=== PATIENT | male | born 1965 | race African-American/Black ===

== ENCOUNTER 2024-09-29 17:25 | Emergency (ER) | payer MEDICAID, SELFPAY ==
[2024-09-30 03:15] VITALS: BP 132/92; PULSE 71; RESP 14; TEMP 36.7; O2SAT 95
[2024-09-30 03:26] LABS: Glucose Point of Care 399 mg/dl (65-105)
--- NOTE | 2024-09-30 03:45 | ED_ITS ---
HPI - Recheck/Abnormal Lab/Rx General Chief Complaint: Recheck/Abnormal Lab/Rx Stated Complaint: diabetes Time Seen by Provider: 09/30/24 03:46 History of Present Illness HPI narrative: Focused HPI:59 y/o M presents to the ED for weakness, dizziness and to have his insulin refilled. Patient states he lives in [place] but has been staying in a motel here visiting his knees. He used the last of his insulin today is requesting a refill. He is taking 22 units of insulin lispro twice daily. He has not established with a PCP. He is reporting diffuse weakness and some dizziness. Denies chest pain or shortness of breath, cough or congestion, fever, N/V/D. Related Data Allergies Allergy/AdvReac Type Severity Reaction Status Date / Time No Known Allergies Allergy Verified 09/30/24 03:25 Review of Systems 2 Review of Systems: As reviewed above in HPI Exam 2 Narrative: GENERAL: Morbidly obese but not any acute distress. Disheveled appearance. HEAD: [Normocephalic, atraumatic.] EYES: [PERRLA and EOMI.] ENT: Nares clear, no rhinorrhea or epistaxis. Mucous membranes dry. NECK: Supple. CHEST: [Clear to auscultation. No respiratory distress.] HEART: [Regular rate and rhythm]. No murmur heard. [Normal peripheral pulses.] ABDOMEN: [Soft, nondistended], [nontender], [No rigidity or guarding] EXTREMITIES: Normal range of motion. [No edema.] SKIN: Warm, dry, no rash. NEURO: [No focal deficits]. Alert and oriented [x3.] PSYCH: [Normal mood and affect.] Course Vital Signs Vital signs: Vital Signs Temperature 36.7 C 09/30/24 03:15 Pulse Rate 71 09/30/24 03:15 Respiratory Rate 14 09/30/24 03:15 Blood Pressure 132/92 H 09/30/24 03:15 Pulse Oximetry 95 09/30/24 03:15 Temperature 36.7 C 09/30/24 03:15 Pulse Rate 71 09/30/24 03:15 Respiratory Rate 14 09/30/24 03:15 Blood Pressure 132/92 H 09/30/24 03:15 Pulse Oximetry 95 09/30/24 03:15 MDM - Recheck/Abnormal Lab/Rx MDM Narrative Medical decision making narrative: 59-year-old male with a past medical history including insulin-dependent diabetes presenting to the emergency department for evaluation as she ran out of insulin yesterday. He takes 22 units of lispro twice daily. He was otherwise in his normal state of health, denies any symptoms at this time, is from out of town and visiting the emergency department as he missed his dosages today. Patient states that he resides at a local hotel and is here for a few weeks. Tells me that he does not have a primary care provider and goes to various emergency departments for refills of his insulin. He does appear dehydrated but no tachypnea or tachycardia is noted. He has otherwise unremarkable vital signs. Not any distress. Suspicion for DKA is low but other process such as elevated glucose dehydration and Entresto fine depletion is possible. Electrolytes, CBC, CMP, VBG, beta hydroxybutyrate ordered. He was given 2 L of normal saline. Glucose was elevated 399. Will evaluate for any kind ketosis or signs of hyperglycemic emergency and lower his glucose prior to discharge. Workup shows no leukocytosis or anemia. Normal platelet count. Blood gas shows normal pH, no acidosis. Normal pCO2. Electrolytes within normal limits, no hypokalemia. Hyperglycemic at 4:17 a.m. but no elevated anion gap or acidosis. No ketosis. Negative beta hydroxybutyrate. Urine with no signs of infection. Patient was given a home dose was 22 units of list pro as well as 2 L of fluid. Repeat glucose has been improved. Patient will be given a repeat prescription for his insulin and safely discharged home at this time with PCP follow-up instructions. Medical Records Attestation: I reviewed the patient's medical records. Lab Data Attestation: I reviewed the patient's lab results. 09/30/24 03:49 09/30/24 03:49 Labs: Lab Results 09/30/24 09/30/24 09/30/24 Range/Units 03:22 03:49 04:04 WBC 7.2 (4.5-10.0) K/mm3 RBC 5.63 (4.6-6.20) M/mm3 Hgb 15.6 (14.0-18.0) g/dL Hct 48.7 (42.0-52.0) % MCV 86.5 (80-100) fl MCH 27.7 (26-34) pg MCHC 32.0 (32-36) g/dl RDW 12.5 (11.5-14.5) % Plt Count 155 (150-375) k/mm3 MPV 11.1 H (7.4-10.4) fl Immature Gran % (Auto) 0.4 (0-0.5) % Neut % (Auto) 44.6 L (45.5-73.1) % Lymph % (Auto) 44.0 (18.3-44.2) % [place] % (Auto) 6.4 (2.6-8.5) % Eos % (Auto) 3.9 (0-4.4) % Baso % (Auto) 0.7 (0.2-1.2) % Lymph # (Auto) 3.18 (0.9-3.2) K/mm3 [place] # (Auto) 0.5 (0.1-0.6) K/mm3 Eos # (Auto) 0.3 (0-0.3) K/mm3 Baso # (Auto) 0.1 (0.0-0.1) K/mm3 Abs Immat Gran (auto) 0.03 (0.00-0.031) K/mm3 Absolute Neuts (auto) 3.2 (1.3-6.7) K/mm3 Absolute Nucleated RBC 0.000 (0.0-0.012) K/mm3 Nucleated RBC % 0.0 (0.0-0.2) % Sodium 133 L (137-145) mmol/L Potassium 4.2 (3.4-5.0) mmol/L Chloride 95 L (98-107) mmol/L Carbon Dioxide 26 (22-30) mmol/L Anion Gap 12 (4-12) mmol/L BUN 19 (9-20) mg/dL Creatinine 1.09 (0.7-1.3) mg/dL Estim Creat Clear Calc 77 ml/min Estimated GFR > 60 (59 - ) Glucose 417 H (65-110) mg/dL POC Capillary Glucose 399 H (65-105) mg/dl Calcium 9.7 (8.4-10.2) mg/dL Phosphorus 3.7 (2.5-4.5) mg/dL Magnesium 2.0 (1.6-2.3) mg/dL Total Bilirubin 0.9 (0.2-1.3) mg/dL AST 25 (17-59) U/L ALT 41 (6-50) U/L Alkaline Phosphatase 130 H (38-126) U/L Total Protein 8.0 (6.3-8.2) g/dL Albumin 4.5 (3.5-5.1) g/dL Beta-Hydroxybutyrate/Acetoacetate 0.20 (0.02-0.27) mmol/L Urine Color Yellow (Yellow) Urine Appearance Clear (Clear) Urine pH 5.5 (5.0-9.0) Ur Specific Victor 1.042 H (1.001-1.035) Urine Protein Negative (Negative) mg/dL Urine Glucose (UA) 3+ H (Negative) mg/dL Urine Ketones Negative (Negative) mg/dL Ur Blood (Man) Negative (Negative) Urine Nitrate Negative (Negative) Urine Bilirubin Negative (Negative) Urine Urobilinogen 0.2 (<2.0) mg/dL Leukocyte Esterase Rfl Negative (Negative) LACY/UL ABG Data ABG results: 09/30/24 03:57 VBG pH 7.378 VBG pCO2 47.7 VBG pO2 40.1 VBG HCO3 27.5 O2 Delivery Device Not Reportable O2 Liters/Min Not Reportable FiO2 21 Attestation: I personally reviewed and interpreted this ABG as follows: Interpretation: Normal VBG Discharge Plan Discharge Clinical Impression: Encounter for medication refill, Hyperglycemia without ketosis, Insulin dependent diabetes mellitus Patient Disposition: Home, Self-Care Condition: Stable Instructions: Antibiotic Form, Diabetes and Nutrition (ED), Diabetes Type 1: Management (ED) Additional Instructions: We will send you home with a refill of your prescription insulin. Follow-up with regular doctor. Return with any new or worsening concerns. Patient Language: Kenyan Prescriptions: New insulin lispro [Humalog KwikPen Insulin] 100 unit/mL insulin pen 1 sliding scale dose subcut USEASDIRECTD Qty: 15 0RF Follow-up/Referrals: UNKNOWN,DOCTOR [Primary Care Provider] - Time of Disposition: 04:55
[2024-09-30] MEDS: SODIUM CHLORIDE 0.9% IV 1,000 ML 999 ML IV CONT ×2 (03:48)
[2024-09-30 03:55] LABS: Basophils Absolute Auto 0.1 K/mm3 (0.0-0.1); Basophils Percent Auto 0.7 % (0.2-1.2); Eosinophils Absolute Auto 0.3 K/mm3 (0-0.3); Eosinophils Percent Auto 3.9 % (0-4.4); Hematocrit 48.7 % (42.0-52.0); Hemoglobin 15.6 g/dL (14.0-18.0); Immature Granulocyte Absolute 0.03 K/mm3 (0.00-0.031); Immature Granulocyte Percent A 0.4 % (0-0.5); Lymphocytes Absolute Auto 3.18 K/mm3 (0.9-3.2); Mean Corpuscular Hemoglobin 27.7 pg (26-34); Mean Corpuscular Volume 86.5 fl (80-100); Mean Platelet Volume 11.1 fl (7.4-10.4); Monocytes Absolute Auto 0.5 K/mm3 (0.1-0.6); Monocytes Percent Auto 6.4 % (2.6-8.5); Neutrophils Absolute Auto 3.2 K/mm3 (1.3-6.7); Neutrophils Percent Auto 44.6 % (45.5-73.1); Platelet Count Result 155 k/mm3 (150-375); Red Blood Count 5.63 M/mm3 (4.6-6.20); Red Cell Distribution Width 12.5 % (11.5-14.5); White Blood Count 7.2 K/mm3 (4.5-10.0)
[2024-09-30 04:11] LABS: Add Urine Microscopic? NO; Appearance Urine Clear (Clear); Bilirubin Urine Negative (Negative); Blood Urine Negative (Negative); Color Urine Yellow (Yellow); Glucose Urine UA 3+ mg/dL (Negative); Ketones Urine Negative (Negative); Leukocyte Esterase Ur Negative LEU/UL (Negative); Nitrate Urine Negative (Negative); Protein Urine Negative (Negative); Specific Grav Ur 1.042 (1.001-1.035); Urobilinogen Urine 0.2 mg/dL (<2.0); pH Urine 5.5 (5.0-9.0)
[2024-09-30 04:11] LABS: Alanine Aminotransferase 41 U/L (6-50); Albumin Level 4.5 g/dL (3.5-5.1); Alkaline Phosphatase 130 U/L (38-126); Anion Gap 12 mmol/L (4-12); Aspartate Amino Transferase 25 U/L (17-59); Bilirubin,Total 0.9 mg/dL (0.2-1.3); Blood Urea Nitrogen 19 mg/dL (9-20); Calcium 9.7 mg/dL (8.4-10.2); Carbon Dioxide 26 mmol/L (22-30); Chloride 95 mmol/L (98-107); Estimated CRCL calculation 77 ml/min; Estimated Glomerular Filt Rate > 60; Glucose 417 mg/dL (65-110); Phosphorus 3.7 mg/dL (2.5-4.5); Potassium 4.2 mmol/L (3.4-5.0); Sodium 133 mmol/L (137-145)
[2024-09-30 04:11] LABS: Fractional Inspired Oxygen 21 %; HCO3 VBG 27.5 mEq/l (24.0-30.0); PCO2 VBG 47.7 mmHg (42.0-48.0); PO2 VBG 40.1 mmHg (35.0-45.0); pH VBG 7.378 (7.300-7.400)
[2024-09-30] MEDS: INSULIN ASPART (*BKC) 100 UNITS/ML 22 UNITS SUB-Q (05:00)
[2024-09-30 05:03] LABS: Glucose Point of Care 355 mg/dl (65-105)
== END 2024-09-30 05:11 | disposition home or self-care (01) ==
LOC: ANHED 09-30 05:06
PROVIDERS: Emergency Provider Student in an Organized Health Care Education/Training Program
DX: E11.65 Type 2 diabetes mellitus with hyperglycemia (principal); Z76.0 Encounter for issue of repeat prescription; Z79.4 Long term (current) use of insulin
CPT/HCPCS: 36415; 80053; 81003; 82010; 82803; 82948; 83735; 84100; 85025; 96360; 99283; J1815; J7030